=== PATIENT | male | born 1955 | race Caucasian/White ===

== ENCOUNTER 2017-07-05 06:58 | Inpatient (IN) | payer SELFPAY ==
[~2017-07-05] VITALS: Ht 170.2 cm; Wt 84.1 kg
[2017-07-05] VITALS (9 sets, daily range): BP systolic 126–177; BP diastolic 89–105; PULSE 68–80; RESP 17–22; TEMP 97.1–98.3; O2SAT 94–99
[~2017-07-05 06:58] MED LIST: ASPI81TA23 PO; CARV3.12 PO; METF1000 PO; PRAV40TA2 PO; WARF-22 PO
--- NOTE | 2017-07-05 07:40 | PD ---
HPI Chief Complaint: Cold / Flu Symptoms Time Seen by Provider: 07:35 Travel History International Travel<30 days: No Contact w/Intl Traveler<30days: No Traveled to known affect area: No History of Present Illness HPI 62-year-old male patient with history of femoral bypass, currently on Coumadin, previous MIs, hypertension, [id number] diabetes, presents to the ER today because over last 4 days he's been having shortness of breath, dyspnea on exertion, coughing, and leg swelling. He denies any fevers or any other issues. Modifying Factors: Worse with exertion Associated Signs & Symptoms: Coughing, shortness of breath, leg swelling Risk Factors: Cardiac history PFSH Past Medical History Hx Anticoagulant Therapy: Yes Heart Rhythm Problems: No Cardiovascular Problems: Yes High Cholesterol: Yes Chest Pain: No Congestive Heart Failure: No COPD: Yes Diabetes: Yes Patient Takes Glucophage: Yes Diminished Hearing: No Genitourinary: No Hypertension: Yes Musculoskeletal: No Neurologic: No Reproductive: No Respiratory: Yes (COPD) Past Surgical History Abdominal Surgery: No Cardiac Surgery: No Ear Surgery: No Endocrine Surgery: No Eye Surgery: No Genitourinary Surgery: No Oral Surgery: No Thoracic Surgery: No Other Surgery: Yes (r. leg dvt sx) Social History Alcohol Use: Yes (occ) Tobacco Use: No Substance Use: No Allergies-Medications (Allergen,Severity, Reaction): Coded Allergies: No Known Allergies (Verified Adverse Reaction, Unknown, 07/05/17) Reported Meds & Prescriptions Reported Meds & Active Scripts Active Pravastatin 40 Mg Tab 2 Tab PO DAILY Metformin (Metformin HCl) 1,000 Mg Tab 1,000 Mg PO BIDPC With meals Warfarin 10 Mg Tab 10 Mg PO DAILY Carvedilol 3.125 Mg Tab 3.125 Mg PO BID Reported Aspirin EC (Aspirin) 81 Mg Tabdr 81 Mg PO DAILY Review of Systems Except as stated in HPI: all other systems reviewed are Neg Physical Exam Narrative GENERAL: Well-developed elderly white male patient currently in mild distress. Awake and oriented 3. SKIN: Focused skin assessment warm/dry. HEAD: Atraumatic. Normocephalic. EYES: Pupils equal and round. No scleral icterus. No injection or drainage. ENT: No nasal bleeding or discharge. Mucous membranes pink and moist. NECK: Trachea midline. No JVD. CARDIOVASCULAR: Regular rate and rhythm. No murmur appreciated. RESPIRATORY: No accessory muscle use. Mild intermittent wheezing bilaterally. Breath sounds equal bilaterally. GASTROINTESTINAL: Abdomen soft, non-tender, nondistended. Hepatic and splenic margins not palpable. MUSCULOSKELETAL: No obvious deformities. No clubbing. No cyanosis. +1 pitting edema both legs. NEUROLOGICAL: Awake and alert. No obvious cranial nerve deficits. Motor grossly within normal limits. Normal speech. PSYCHIATRIC: Appropriate mood and affect; insight and judgment normal. Data Data Last Documented VS Vital Signs Date Time Temp Pulse Resp B/P (MAP) Pulse Ox O2 Delivery O2 Flow Rate FiO2 07/05/17 09:08 72 19 151/96 (114) 97 Room Air 07/05/17 07:03 97.7 Orders Orders Complete Blood Count With Diff (07/05/17 07:35) Comprehensive Metabolic Panel (07/05/17 07:35) B-Type Natriuretic Peptide (07/05/17 07:35) Act Partial Throm Time (Ptt) (07/05/17 07:35) Prothrombin Time / Inr (Pt) (07/05/17 07:35) Ckmb (Isoenzyme) Profile (07/05/17 07:35) Troponin I (07/05/17 07:35) Iv Access Insert/Monitor (07/05/17 07:35) Ecg Monitoring (07/05/17 07:35) Oximetry (07/05/17 07:35) Oxygen Administration (07/05/17 07:35) Chest, Single Ap (07/05/17 07:35) Sodium Chloride 0.9% Flush (Ns Flush) (07/05/17 07:45) Us Leg Venous Doppler Bilat (07/05/17 07:35) CKMB (07/05/17 07:30) CKMB% (07/05/17 07:30) Electrocardiogram (07/05/17 07:33) Furosemide Inj (Lasix Inj) (07/05/17 08:45) Labs Laboratory Tests Test 07/05/17 07:30 White Blood Count 9.7 TH/MM3 Red Blood Count 3.85 MIL/MM3 Hemoglobin 12.7 GM/DL Hematocrit 38.7 % Mean Corpuscular Volume 100.6 FL Mean Corpuscular Hemoglobin 33.0 PG Mean Corpuscular Hemoglobin Concent 32.9 % Red Cell Distribution Width 14.9 % Platelet Count 203 TH/MM3 Mean Platelet Volume 9.5 FL Neutrophils (%) (Auto) 76.9 % Lymphocytes (%) (Auto) 15.7 % Monocytes (%) (Auto) 5.5 % Eosinophils (%) (Auto) 1.1 % Basophils (%) (Auto) 0.8 % Neutrophils # (Auto) 7.5 TH/MM3 Lymphocytes # (Auto) 1.5 TH/MM3 Monocytes # (Auto) 0.5 TH/MM3 Eosinophils # (Auto) 0.1 TH/MM3 Basophils # (Auto) 0.1 TH/MM3 CBC Comment DIFF FINAL Differential Comment Prothrombin Time 112.8 SEC Prothromb Time International Ratio 9.3 RATIO Activated Partial Thromboplast Time 53.5 SEC Blood Urea Nitrogen 18 MG/DL Creatinine 1.15 MG/DL Random Glucose 133 MG/DL Total Protein 6.9 GM/DL Albumin 3.6 GM/DL Calcium Level 8.5 MG/DL Alkaline Phosphatase 74 U/L Aspartate Amino Transf (AST/SGOT) 43 U/L Alanine Aminotransferase (ALT/SGPT) 57 U/L Total Bilirubin 0.7 MG/DL Sodium Level 140 MEQ/L Potassium Level 4.1 MEQ/L Chloride Level 108 MEQ/L Carbon Dioxide Level 23.9 MEQ/L Anion Gap 8 MEQ/L Estimat Glomerular Filtration Rate 65 ML/MIN Total Creatine Kinase 158 U/L Creatine Kinase MB 4.5 NG/ML Troponin I 0.13 NG/ML B-Type Natriuretic Peptide 2813 PG/ML MDM Medical Decision Making Medical Screen Exam Complete: Yes Emergency Medical Condition: Yes Medical Record Reviewed: Yes Interpretation(s) EKG shows normal sinus rhythm with first-degree AV block at a rate of 73 bpm. Occasional PVCs. No signs of acute ST-T changes. Laboratory Tests Test 07/05/17 07:30 Red Blood Count 3.85 MIL/MM3 (4.50-5.90) Hemoglobin 12.7 GM/DL (13.0-17.0) Hematocrit 38.7 % (39.0-51.0) Mean Corpuscular Volume 100.6 FL (80.0-100.0) Neutrophils (%) (Auto) 76.9 % (16.0-70.0) Prothrombin Time 112.8 SEC (9.8-11.6) Prothromb Time International Ratio 9.3 RATIO Activated Partial Thromboplast Time 53.5 SEC (24.3-30.1) Random Glucose 133 MG/DL (74-106) Aspartate Amino Transf (AST/SGOT) 43 U/L (15-37) Chloride Level 108 MEQ/L (98-107) Estimat Glomerular Filtration Rate 65 ML/MIN (>89) Creatine Kinase MB 4.5 NG/ML (0.5-3.6) Troponin I 0.13 NG/ML (0.02-0.05) B-Type Natriuretic Peptide 2813 PG/ML (0-100) Last 24 hours Impressions Lower Extremity Ultrasound 07/05/17734 Signed Impressions: Service Date/Time: Wednesday, July 05, 2017 07:50 - CONCLUSION: Normal examination. Angel Nevarez MD Chest X-Ray 07/05/17734 Signed Impressions: Service Date/Time: Wednesday, July 05, 2017 08:19 - CONCLUSION: 1. Probable trace right pleural effusion with mild patchy right lower lobe airspace disease which may reflect atelectasis although developing pneumonia or aspiration cannot be excluded in the appropriate clinical setting. Abel Friedman MD Differential Diagnosis Coughing, dyspnea on exertion, leg swelling: Dependent edema versus CHF exacerbation versus COPD exacerbation versus pneumonia versus PE/DVT Narrative Course Chest x-ray and symptoms indicative of possible underlying CHF. BNP is fairly elevated as well. Chest x-ray shows right lower lobe effusion, right lower lobe infiltrates, and Lasix was given in the ER. Plan would be to admit the patient for further treatment. Ultrasound of the legs show no signs of DVT. At this point, case is discussed with Dr. Smith for admission. Diagnosis Primary Impression: CHF exacerbation Admitting Information Admitting Physician Requests: Admit Molly Aguirre MD Jul 05, 2017 07:40
[2017-07-05] MEDS ORDERED: SODIUM CHLORIDE 0.9% FLUSH 10 ML FLUSH IVF PRN (07:45)
[2017-07-05 07:53] LABS: AUTOMATED NEUTROPHIL # 7.5 TH/MM3 (1.8-7.7); BASOPHIL # 0.1 TH/MM3 (0-0.2); BASOPHIL % 0.8 % (0.0-2.0); EOSINOPHIL # 0.1 TH/MM3 (0-0.4); EOSINOPHIL % 1.1 % (0.0-4.0); HEMATOCRIT 38.7 % (39.0-51.0); HEMO FLAGS DIFF FINAL; LYMPH % 15.7 % (9.0-44.0); LYMPHOCYTE # 1.5 TH/MM3 (1.0-4.8); MEAN CELL VOLUME 100.6 FL (80.0-100.0); MEAN CORPUSCULAR HGB CONC 32.9 % (32.0-36.0); MONO % 5.5 % (0.0-8.0); NEUT % 76.9 % (16.0-70.0); PLATELET COUNT 203 TH/MM3 (150-450); RED BLOOD COUNT 3.85 MIL/MM3 (4.50-5.90); RED CELL DISTRIBUTION WIDTH 14.9 % (11.6-17.2); WHITE BLOOD COUNT 9.7 TH/MM3 (4.0-11.0)
[2017-07-05 08:06] LABS: APTT (PATIENT) 53.5 SEC (24.3-30.1); PROTHROMBIN TIME - PATIENT 112.8 SEC (9.8-11.6)
[2017-07-05 08:11] LABS: ALT (GPT) 57 U/L (12-78); ANION GAP 8 MEQ/L (5-15); AST (GOT) 43 U/L (15-37); BICARBONATE 23.9 MEQ/L (21.0-32.0); BLOOD UREA NITROGEN 18 MG/DL (7-18); CHLORIDE 108 MEQ/L (98-107); GLOMERULAR FILTRATION RATE 65 ML/MIN (>89); POTASSIUM 4.1 MEQ/L (3.5-5.1); SODIUM (NA) 140 MEQ/L (136-145)
[2017-07-05 08:14] LABS: ALKALINE PHOSPHATASE 74 U/L (45-117); CREATINE KINASE 158 U/L (39-308); INTERNATIONAL NORMALIZED RATIO 9.3 RATIO; TOTAL BILIRUBIN ADULT 0.7 MG/DL (0.2-1.0)
[2017-07-05 08:26] LABS: CKMB 4.5 NG/ML (0.5-3.6)
--- NOTE | 2017-07-05 08:34 | RADRPT ---
EXAM DATE/TIME: 07/05/2017 07:50 [facility] COMPARISON: No previous studies available for comparison. INDICATIONS : Bilateral leg swelling. MEDICAL HISTORY : Hypercholesterolemia. Hypertension. Chronic obstructive pulmonary disease. Anticoagulant therapy. Jia betes. SURGICAL HISTORY : Right fermoral artery bypass graft. ENCOUNTER: Initial ACUITY: 1 day PAIN SCORE: 0/10 LOCATION: Bilateral legs. TECHNIQUE: Venous ultrasound of the left and right leg was performed from the inguinal ligament to the proximal calf. Real-time, color Doppler and spectral tracing, compression and augmentation techniques were us ed. FINDINGS: RIGHT LEG: There is normal compressibility of the deep venous system from the inguinal region to the proximal ca lf. No echogenic clot is seen in the lumen of the common femoral, femoral, popliteal, and posterior tibial veins. There is a normal response of the venous system to proximal and distal augmentation an d respiration. LEFT LEG: There is normal compressibility of the deep venous system from the inguinal region to the proximal ca lf. No echogenic clot is seen in the lumen of the common femoral, femoral, popliteal, and posterior tibial veins. There is a normal response of the venous system to proximal and distal augmentation an d respiration. CONCLUSION: Normal examination. Angel Nevarez MD on July 05, 2017 at 8:32 Board Certified Radiologist. This report was verified electronically.
--- NOTE | 2017-07-05 08:41 | RADRPT ---
EXAM DATE/TIME: 07/05/2017 08:19 [facility] COMPARISON: CHEST SINGLE AP, February 18, 2016, 11:35. INDICATIONS : Short of breath, coughing and lower extremity edema MEDICAL HISTORY : Hypertension. Chronic obstructive pulmonary disease. Congestive heart failure. diabetes SURGICAL HISTORY : None. ENCOUNTER: Initial ACUITY: 2 days PAIN SCORE: 0/10 LOCATION: Bilateral chest FINDINGS: Slight blunting of the right costophrenic angle with subtle right lower lobe patchy airspace disease. Cardiomediastinal contours are stable. Bony thorax is intact. CONCLUSION: 1. Probable trace right pleural effusion with mild patchy right lower lobe airspace disease which may reflect atelectasis although developing pneumonia or aspiration cannot be excluded in the appropriat e clinical setting. Abel Friedman MD on July 05, 2017 at 8:38 Board Certified Radiologist. This report was verified electronically.
[2017-07-05] MEDS ORDERED: FUROSEMIDE 40 MG/4 ML VIAL IV PUSH ONE (08:45)
[2017-07-05] MEDS ORDERED: GLUCAGON 1 MG/ML VIAL OTHER PRN (09:30)
[2017-07-05] MEDS ORDERED: DEXTROSE 50% IN WATER 50 ML VIAL(D50) IV PUSH PRN (09:30)
--- NOTE | 2017-07-05 10:47 | HHI.HP ---
[facility] Primary Care Physician No Primary Care Physician Admission Diagnosis CHF exacerbation/elevated troponin Diagnoses: (1) CHF exacerbation Diagnosis: Principal Chief Complaint: sob Travel History International Travel<30 Days: No Contact w/Intl Traveler <30 Da: No Traveled to Known Affected Are: No History of Present Illness patient is a 62 y/o male with history of CHF, hypertension, dyslipidemia and PVD who presented to ER with shortness of breath. he says that he's had sob for the past few days. this was associated with some cough productive of clear sputum. he denies any fever or chills but reports orthopnea and PND; in fact he says that he couldn't sleep because of worsening sob. denies any chest pain- he says that he noticed that his legs are more swollen. he says that he's compliant with the medications and diet. Review of Systems Constitutional: DENIES: Fever, Weight loss, Chills, Night Sweats Eyes: DENIES: Blurred vision, Diplopia, Vision loss, Double Vision Ears, nose, mouth, throat: DENIES: Tinnitus, Vertigo, Throat pain, Epistaxis Respiratory: COMPLAINS OF: Cough, Sputum production, Shortness of breath, DENIES: Apneas, Snoring, Wheezing, Hemoptysis Cardiovascular: COMPLAINS OF: PND, Lower Extremity Edema, Orthopnea, DENIES: Palpitations, Syncope, Dyspnea on Exertion, Claudication Gastrointestinal: DENIES: Abdominal pain, Black stools, Bloody stools, Constipation, Diarrhea, Nausea, Vomiting, Difficulty Swallowing, Anorexia Genitourinary: DENIES: Urinary frequency, Urgency, Hematuria, Dysuria Musculoskeletal: DENIES: Joint pain, Muscle aches, Stiffness, Joint Swelling Integumentary: DENIES: Rash Neurologic: DENIES: Abnormal gait, Headache, Localized weakness, Paresthesias, Seizures, Speech Problems, Tremor, Poor Balance Psychiatric: DENIES: Anxiety, Confusion, Mood changes, Depression, Hallucinations, Agitation, Suicidal Ideation, Homicidal Ideation, Delusions Past Family Social History Past Medical History CHF hypertension dyslipidemia PVD Past Surgical History angioplasty right leg Reported Medications coreg aspirin pravachol metformin Allergies: Coded Allergies: No Known Allergies (Verified Allergy, Unknown, 07/05/17) Active Ordered Medications Current Medications Sodium Chloride (NS Flush) 2 ml UNSCH PRN IVF FLUSH AFTER USING IV ACCESS Last administered on 07/05/17 09:05; Start 07/05/17 at 07:45 Furosemide (Lasix Inj) 40 mg ONCE ONCE IV PUSH Last administered on 09:05; Start 07/05/17 at 08:45; Stop 07/05/17 at 08:46; Status DC Dextrose (D50w (Vial) Inj) 50 ml UNSCH PRN IV PUSH HYPOGLYCEMIA-SEE COMMENTS; Start 07/05/17 at 09:30 Glucagon (Glucagon Inj) 1 mg UNSCH PRN OTHER HYPOGLYCEMIA-SEE COMMENTS; Start 07/05/17 at 09:30 Insulin Aspart (NovoLOG SUPPLEMENTAL SCALE) 1 ACHS SLIDING SCALE SQ ; Start at 12:00 Social History quit smoking two years ago- drinks occasionally. Physical Exam Vital Signs Vital Signs Date Time Temp Pulse Resp B/P (MAP) Pulse Ox O2 Delivery O2 Flow Rate FiO2 07/05/17 09:08 72 19 151/96 (114) 97 Room Air 07/05/17 07:18 77 22 157/93 (114) 98 Room Air 07/05/17 07:03 97.7 80 17 177/105 (129) 99 Room Air Physical Exam GENERAL: This is a well-nourished, well-developed patient, in no apparent distress. SKIN: No rashes, ecchymoses or lesions. Cool and dry. HEAD: Atraumatic. Normocephalic. No temporal or scalp tenderness. EYES: Pupils equal round and reactive. Extraocular motions intact. No scleral icterus. No injection or drainage. ENT: Nose without bleeding, purulent drainage or septal hematoma. Throat without erythema, tonsillar hypertrophy or exudate. Uvula midline. Airway patent. NECK: Trachea midline. No JVD or lymphadenopathy. Supple, nontender, no meningeal signs. CARDIOVASCULAR: Regular rate and rhythm without murmurs, gallops, or rubs. RESPIRATORY: Clear to auscultation. Breath sounds equal bilaterally. No wheezes , rales, or rhonchi. GASTROINTESTINAL: Abdomen soft, non-tender, nondistended. No hepato-splenomegaly , or palpable masses. No guarding. MUSCULOSKELETAL: Extremities with bilateral pedal edema. NEUROLOGICAL: Awake and alert. Cranial nerves II through XII intact. Motor and sensory grossly within normal limits. Five out of 5 muscle strength in all muscle groups. Normal speech. Laboratory Laboratory Tests Test 07/05/17 07:30 White Blood Count 9.7 Red Blood Count 3.85 Hemoglobin 12.7 Hematocrit 38.7 Mean Corpuscular Volume 100.6 Mean Corpuscular Hemoglobin 33.0 Mean Corpuscular Hemoglobin Concent 32.9 Red Cell Distribution Width 14.9 Platelet Count 203 Mean Platelet Volume 9.5 Neutrophils (%) (Auto) 76.9 Lymphocytes (%) (Auto) 15.7 Monocytes (%) (Auto) 5.5 Eosinophils (%) (Auto) 1.1 Basophils (%) (Auto) 0.8 Neutrophils # (Auto) 7.5 Lymphocytes # (Auto) 1.5 Monocytes # (Auto) 0.5 Eosinophils # (Auto) 0.1 Basophils # (Auto) 0.1 CBC Comment DIFF FINAL Differential Comment Prothrombin Time 112.8 Prothromb Time International Ratio 9.3 Activated Partial Thromboplast Time 53.5 Blood Urea Nitrogen 18 Creatinine 1.15 Random Glucose 133 Total Protein 6.9 Albumin 3.6 Calcium Level 8.5 Alkaline Phosphatase 74 Aspartate Amino Transf (AST/SGOT) 43 Alanine Aminotransferase (ALT/SGPT) 57 Total Bilirubin 0.7 Sodium Level 140 Potassium Level 4.1 Chloride Level 108 Carbon Dioxide Level 23.9 Anion Gap 8 Estimat Glomerular Filtration Rate 65 Total Creatine Kinase 158 Creatine Kinase MB 4.5 Troponin I 0.13 B-Type Natriuretic Peptide 2813 Result Diagram: 07/05/1772907/05/17729 Imaging Last Impressions Lower Extremity Ultrasound 07/05/17734 Signed Impressions: Service Date/Time: Wednesday, July 05, 2017 07:50 - CONCLUSION: Normal examination. Angel Nevarez MD Chest X-Ray 07/05/17734 Signed Impressions: Service Date/Time: Wednesday, July 05, 2017 08:19 - CONCLUSION: 1. Probable trace right pleural effusion with mild patchy right lower lobe airspace disease which may reflect atelectasis although developing pneumonia or aspiration cannot be excluded in the appropriate clinical setting. Abel Bozorgmanesh, MD Caprini VTE Risk Assessment Caprini VTE Risk Assessment: Mod/High Risk (score >= 2) Caprini Risk Assessment Model Point Value = 1 Point Value = 2 Point Value = 3 Point Value = 5 Age 41-60 Minor surgery BMI > 25 kg/m2 Swollen legs Varicose veins or History of unexplained or recurrent spontaneous Oral contraceptives or hormone replacement Sepsis (< 1 month) Serious lung disease, including pneumonia (< 1 month) Abnormal pulmonary function Acute myocardial infarction Congestive heart failure (< 1 month) History of inflammatory bowel disease Medical patient at bed rest Age 61-74 Arthroscopic surgery Major open surgery (> 45 min) Laparoscopic surgery (> 45 min) Malignancy Confined to bed (> 72 hours) Immobilizing plaster cast Central venous access Age >= 75 History of VTE Family history of VTE Factor V Leiden Prothrombin [id number] Lupus anticoagulant Anticardiolipin antibodies Elevated serum homocysteine Heparin-induced thrombocytopenia Other congenital or acquired thrombophilia Stroke (< 1 month) Elective arthroplasty Hip, pelvis, or leg fracture Acute spinal cord injury (< 1 month) Prophylaxis Regimen Total Risk Factor Score Risk Level Prophylaxis Regimen 0-1 Low Early ambulation 2 Moderate Order ONE of the following: *Sequential Compression Device (SCD) *Heparin 5000 units SQ BID 3-4 Higher Order ONE of the following medications: *Heparin 5000 units SQ TID *Enoxaparin/Lovenox 40 mg SQ daily (WT < 150 kg, CrCl > 30 mL/min) *Enoxaparin/Lovenox 30 mg SQ daily (WT < 150 kg, CrCl > 10-29 mL/min) *Enoxaparin/Lovenox 30 mg SQ BID (WT < 150 kg, CrCl > 30 mL/min) AND/OR *Sequential Compression Device (SCD) 5 or more Highest Order ONE of the following medications: *Heparin 5000 units SQ TID (Preferred with Epidurals) *Enoxaparin/Lovenox 40 mg SQ daily (WT < 150 kg, CrCl > 30 mL/min) *Enoxaparin/Lovenox 30 mg SQ daily (WT < 150 kg, CrCl > 10-29 mL/min) *Enoxaparin/Lovenox 30 mg SQ BID (WT < 150 kg, CrCl > 30 mL/min) AND *Sequential Compression Device (SCD) Assessment and Plan Assessment and Plan A/P - acute on chronic systolic CHF EF 25-30% on echo ( 2014). start on IV diuretics- resume Coreg- will monitor I/O and daily weight- repeat echo. -mildly elevated troponin- likely due to CHF- denies chest pain- no acute EKG changes continue BB and statin- trend the cardiac enzymes. of note had a cardiac cath about two years ago with no significant CAD. will consider cardiology consult if develops chest pain or with rising troponin. -coumadin toxicity- no active bleeding. hold coumadin- one dose of po Vitamin K today- PT/ INR tomorrow. -diabetes mellitus hold metformin due to CHF- accu-check with SSI. -PVD- s/p vascular intervention in 2014 -resume coumadin when INR back to therapeutic level- resume statin. -DVT prophylaxis; on Coumadin ( on hold due to supratherapeutic INR). Discussed Condition With the patient and ER physician. Physician Certification 2 Midnight Certification Type: Admission for Inpatient Services Order for Inpatient Services The services are ordered in accordance with Medicare regulations or non- Medicare payer requirements, as applicable. In the case of services not specified as inpatient-only, they are appropriately provided as inpatient services in accordance with the 2-midnight benchmark. Estimated LOS (days): 2 days is the estimated time the patient will need to remain in the hospital, assuming treatment plan goals are met and no additional complications. Post-Hospital Plan: Home Problem Qualifiers (1) CHF exacerbation: Qualified Codes: I50.23 - Acute on chronic systolic (congestive) heart failure Amber Quick MD Jul 05, 2017 10:47
[2017-07-05] MEDS ORDERED: ENALAPRILAT 1.25 MG/ML VIAL IV PUSH PRN (11:00)
[2017-07-05] MEDS ORDERED: PHYTONADIONE 5 MG TAB PO ONE (11:00)
[2017-07-05] MEDS ORDERED: PHYTONADIONE 5 MG/SWFI 5 ML ORAL SYR PO ONE (11:45)
[2017-07-05] MEDS: POTASSIUM CHLORIDE 20 MEQ CONTROLLED RELEASE TAB PO SCH (11:58)
[2017-07-05] MEDS: INSULIN ASPART SUPPLEMENTAL SCALE SQ SCH ×3 (12:00→20:59)
[2017-07-05] MEDS ORDERED: FUROSEMIDE 20 MG/2 ML VIAL IV PUSH ONE (14:00)
--- NOTE | 2017-07-05 17:10 | EKG ---
Date Performed: 07/05/2017 Time Performed: 07:33:48 PTAGE: 62 years EKG: Sinus rhythm WITH FIRST DEGREE AV BLOCK WITH OCCASIONAL VENTRICULAR PREMATURE COMPLEXES POSSIBLE LEFT ATRIAL ENLA RGEMENT INTRAVENTRICULAR CONDUCTION DELAY When compared to previous tracing, the patient is no longer Bradycardic. ABNORMAL ECG PREVIOUS TRACING : 02/18/2016 11.14.01 DOCTOR: Raquel Paulino Interpretating Date/Time 07/05/2017 17:09:18
[2017-07-05] MEDS: CARVEDILOL 3.125 MG TAB PO SCH (20:56)
[2017-07-06] VITALS (10 sets, daily range): BP systolic 123–139; BP diastolic 77–93; PULSE 56–77; RESP 18; TEMP 97.2–98.4; O2SAT 95–99
[2017-07-06] MEDS ORDERED: ACETAMINOPHEN 325 MG TAB PO PRN (05:00)
[2017-07-06] MEDS: INSULIN ASPART SUPPLEMENTAL SCALE SQ SCH ×4 (07:43→20:49)
[2017-07-06] MEDS: POTASSIUM CHLORIDE 20 MEQ CONTROLLED RELEASE TAB PO SCH (08:07)
[2017-07-06] MEDS: PRAVASTATIN SOD 40 MG TAB PO SCH (08:07)
[2017-07-06] MEDS: CARVEDILOL 3.125 MG TAB PO SCH ×2 (08:07→20:50)
[2017-07-06] MEDS: FUROSEMIDE 40 MG/4 ML VIAL IV PUSH SCH (08:07)
[2017-07-06 09:43] LABS: INTERNATIONAL NORMALIZED RATIO 1.7 RATIO; PROTHROMBIN TIME - PATIENT 19.1 SEC (9.8-11.6)
[2017-07-06] MEDS ORDERED: INFLUENZA VIRUS VACCINE (QUADRIVALENT) 0.5 ML SYR IM ONE (10:00)
[2017-07-06 10:04] LABS: BICARBONATE 27.9 MEQ/L (21.0-32.0); POTASSIUM 3.6 MEQ/L (3.5-5.1)
--- NOTE | 2017-07-06 13:59 | ECHRPT ---
Indication: Heart failure, unspecified CONCLUSIONS The left ventricular systolic function is moderately reduced with an estimated ejection fraction in the range of 40-45%. Wall thickness is measured at the upper limits of normal. Normal left ventricular size. moderate mitral valve regurgitation. possible ruptured or redundant chordae tendinae There is mild to moderate tricuspid regurgitation. The estimated pulmonary arterial pressure is 65.7 mmHg. BP: 151 / 96 HR: 72 Rhythm: Other MEASUREMENTS (Male / Female) Normal Values Technical Quality:Fair 2D ECHO LV Diastolic Diameter PLAX 5.8 cm 4.2 - 5.9 / 3.9 - 5.3 cm LV Systolic Diameter PLAX 4.9 cm IVS Diastolic Thickness 1.1 cm 0.6 - 1.0 / 0.6 - 0.9 cm LVPW Diastolic Thickness 1.2 cm 0.6 - 1.0 / 0.6 - 0.9 cm LV Relative Wall Thickness 0.4 LVOT Diameter 2.0 cm M-MODE Aortic Root Diameter MM 2.7 cm LA Systolic Diameter MM 5.4 cm LA Ao Ratio MM 2.0 AV Cusp Separation MM 2.2 cm DOPPLER AV Peak Velocity 145.0 cm/s AV Peak Gradient 8.4 mmHg LVOT Peak Velocity 68.6 cm/s LVOT Peak Gradient 1.9 mmHg AV Area Cont Eq pk 1.5 cm MR Peak Velocity 443.0 cm/s MR Peak Gradient 78.5 mmHg TR Peak Velocity 373.0 cm/s TR Peak Gradient 55.7 mmHg Right Atrial Pressure 10.0 mmHg Pulmonary Artery Systolic Pressu 65.7 mmHg Right Ventricular Systolic Press 65.7 mmHg PV Peak Velocity 128.0 cm/s PV Peak Gradient 6.6 mmHg FINDINGS LEFT VENTRICLE The left ventricular systolic function is moderately reduced with an estimated ejection fraction in the range of 40-45%. Wall thickness is measured at the upper limits of normal. Normal left ventricular size. RIGHT VENTRICLE Normal right ventricular size and systolic function. LEFT ATRIUM The left atrial size is normal. RIGHT ATRIUM The right atrial size is normal. ATRIAL SEPTUM Normal atrial septal thickness without atrial level shunting by limited color doppler interrogation. AORTA The aortic root and proximal ascending aorta are normal in size on limited imaging. MITRAL VALVE [id number] mitral valve regurgitation. AORTIC VALVE Trileaflet aortic valve. No aortic valve stenosis or regurgitation. TRICUSPID VALVE There is severe tricuspid regurgitation. The estimated pulmonary arterial pressure is 65.7 mmHg. PULMONARY VALVE No pulmonary valve regurgitation or stenosis. VESSELS The inferior vena cava is normal in size. PERICARDIUM No pericardial effusion. Bennett Waters MD, FACC, [facility] (Electronically Signed) Final Date:06 July 2017 13:58
--- NOTE | 2017-07-06 17:27 | HHI.PR ---
Subjective Remarks deferred entry - patient seen earlier at 12:30 am sob improving. denies cp. Objective Vitals Vital Signs Date Time Temp Pulse Resp B/P (MAP) Pulse Ox O2 Delivery O2 Flow Rate FiO2 07/06/17 13:08 Room Air 07/06/17 12:30 56 07/06/17 12:03 97.2 59 18 123/80 (94) 96 07/06/17 08:03 97.2 67 18 132/85 (101) 97 07/06/17 04:45 97.3 66 18 139/91 (107) 95 07/06/17 04:03 70 07/06/17 00:04 71 07/05/17 23:52 97.1 68 18 126/90 (102) 94 07/05/17 20:00 Room Air 07/05/17 19:55 98.3 73 18 146/93 (110) 98 07/05/17 19:41 76 I/O 07/05/17 07/05/17 07/05/17 07/06/17 07/06/17 07/06/17 07:00 15:00 23:00 07:00 15:00 23:00 Intake Total 960 ml Output Total 375 ml Balance 585 ml Intake Oral 960 ml Output Urine Total 375 ml # Voids 2 # Bowel Movements 0 Result Diagram: 07/05/1772907/06/17900 Imaging Last Impressions Lower Extremity Ultrasound 07/05/17734 Signed Impressions: Service Date/Time: Wednesday, July 05, 2017 07:50 - CONCLUSION: Normal examination. Angel Nevarez MD Chest X-Ray 07/05/17734 Signed Impressions: Service Date/Time: Wednesday, July 05, 2017 08:19 - CONCLUSION: 1. Probable trace right pleural effusion with mild patchy right lower lobe airspace disease which may reflect atelectasis although developing pneumonia or aspiration cannot be excluded in the appropriate clinical setting. Abel Friedman MD Objective Remarks AAOx3 NAD S1S2 RRR, no MRG abdomen soft, nt, nd + bilateral edema still present in lower extremities Medications and IVs Current Medications Medications (Trade) Dose Ordered Sig/Eliot Route Start Time Stop Time Status Last Admin (NS Flush) 2 ml UNSCH PRN IVF 07/05/17 07:45 07/05/17 09:05 (D50w (Vial) Inj) 50 ml UNSCH PRN IV PUSH 07/05/17 09:30 (Glucagon Inj) 1 mg UNSCH PRN OTHER 07/05/17 09:30 (NovoLOG SUPPLEMENTAL SCALE) 1 ACHS SLIDING SCALE SQ 07/05/17 12:00 07/05/17 17:08 (Lasix Inj) 40 mg DAILY IV PUSH 07/06/17 09:00 07/06/17 08:07 (KCl) 20 meq DAILY PO 07/05/17 12:00 07/06/17 08:07 (Vasotec Inj) 1.25 mg Q8H PRN IV PUSH 07/05/17 11:00 (Coreg) 3.125 mg BID PO 07/05/17 21:00 07/06/17 08:07 (Pravachol) 80 mg DAILY PO 07/06/17 09:00 07/06/17 08:07 (Tylenol) 650 mg Q4H PRN PO 07/06/17 05:00 07/06/17 05:43 A/P Problem List: (1) Acute on chronic systolic (congestive) heart failure ICD Code: I50.23 - Acute on chronic systolic (congestive) heart failure Plan: EF 25-30% on echocardiogram performed in 2014. The patient was started on IV diuretics, Coreg resumed. Repeat echo still pending. Respiratory status improving. (2) Troponin level elevated ICD Code: R77.8 - Other specified abnormalities of plasma proteins Status: Acute Plan: Likely secondary to congestive heart failure. The patient denies chest pain and EKG reviewed by me does not show acute EKG changes suggestive of active ischemia. Continue beta jesus and statin and trend cardiac enzymes. Cardiac enzymes have been stable at 0.13. (3) Supratherapeutic INR ICD Code: R79.1 - Abnormal coagulation profile Plan: INR elevated at 9.3 on admission. No active bleeding observed. Upon review of records the patient has had a cardiac catheter about 2 years ago with no significant CAD. Will continue to monitor troponin level and if there is elevation or no improvement of these then will consult cardiology. INR came down to 1.7. We'll resume Coumadin. (4) Diabetes mellitus ICD Code: E11.9 - Diabetes mellitus Status: Chronic Plan: Metformin held due to acute congestive heart failure. The patient has been placed on SSI with insulin NovoLog and Accu-Cheks. Blood sugar seems to be stable. Continue SSI. (5) PAD (peripheral artery disease) ICD Code: I73.9 - Peripheral vascular disease, unspecified Status: Acute Plan: s/p vascular intervention in 2014 -resume coumadin when INR back to therapeutic level-continue statin. Assessment and Plan Will order PT eval. Discharge Planning Discharge pending PT eval. Possible discharge in a.m. pending clinical improvement. Problem Qualifiers (1) Diabetes mellitus: Qualified Codes: E11.8 - Type 2 diabetes mellitus with unspecified complications Michael Timmons MD Jul 06, 2017 17:27
[2017-07-07] VITALS (9 sets, daily range): BP systolic 121–133; BP diastolic 72–88; PULSE 64–79; RESP 18; TEMP 97–97.6; O2SAT 96–98
[2017-07-07] MEDS: INSULIN ASPART SUPPLEMENTAL SCALE SQ SCH ×4 (08:00→20:34)
[2017-07-07] MEDS: PRAVASTATIN SOD 40 MG TAB PO SCH (08:50)
[2017-07-07] MEDS: CARVEDILOL 3.125 MG TAB PO SCH ×2 (08:50→20:35)
[2017-07-07] MEDS: FUROSEMIDE 40 MG/4 ML VIAL IV PUSH SCH (08:50)
[2017-07-07] MEDS: POTASSIUM CHLORIDE 20 MEQ CONTROLLED RELEASE TAB PO SCH (08:50)
[2017-07-07 12:40] LABS: HEMATOCRIT 37.1 % (39.0-51.0); MEAN CELL VOLUME 99.5 FL (80.0-100.0); MEAN CORPUSCULAR HEMOGLOBIN 33.2 PG (27.0-34.0); MEAN CORPUSCULAR HGB CONC 33.3 % (32.0-36.0); PLATELET COUNT 203 TH/MM3 (150-450); RED BLOOD COUNT 3.73 MIL/MM3 (4.50-5.90); RED CELL DISTRIBUTION WIDTH 14.7 % (11.6-17.2); REVIEW FLAG FINAL; WHITE BLOOD COUNT 7.4 TH/MM3 (4.0-11.0)
[2017-07-07 12:57] LABS: BICARBONATE 26.9 MEQ/L (21.0-32.0); POTASSIUM 3.8 MEQ/L (3.5-5.1)
--- NOTE | 2017-07-07 14:34 | HHI.PR ---
Subjective Remarks SOB improving patient still c/o of BL lower extremity edema which is better and improving. Denies cp/sob Objective Vitals Vital Signs Date Time Temp Pulse Resp B/P (MAP) Pulse Ox O2 Delivery O2 Flow Rate FiO2 07/07/17 12:00 97.6 64 18 121/72 (88) 97 07/07/17 08:00 97.0 66 18 127/85 (99) 96 07/07/17 07:00 79 07/07/17 04:05 97.3 65 18 133/88 (103) 98 07/07/17 04:00 67 07/07/17 00:00 68 07/06/17 23:07 98.4 77 18 131/77 (95) 96 07/06/17 20:00 Room Air 07/06/17 20:00 67 07/06/17 19:27 97.9 66 18 134/93 (107) 97 07/06/17 16:03 97.9 65 18 135/90 (105) 99 I/O 07/06/17 07/06/17 07/06/17 07/07/17 07/07/17 07/07/17 07:00 15:00 23:00 07:00 15:00 23:00 Intake Total 960 ml 380 ml 480 ml Output Total 375 ml 250 ml Balance 585 ml 380 ml 230 ml Intake Oral 960 ml 380 ml 480 ml Output Urine Total 375 ml 250 ml # Voids 5 # Bowel Movements 0 1 0 Result Diagram: 07/07/17 1210 07/07/17 1210 Imaging Last Impressions Lower Extremity Ultrasound 07/05/17734 Signed Impressions: Service Date/Time: Wednesday, July 05, 2017 07:50 - CONCLUSION: Normal examination. Angel Nevarez MD Chest X-Ray 07/05/17734 Signed Impressions: Service Date/Time: Wednesday, July 05, 2017 08:19 - CONCLUSION: 1. Probable trace right pleural effusion with mild patchy right lower lobe airspace disease which may reflect atelectasis although developing pneumonia or aspiration cannot be excluded in the appropriate clinical setting. Abel Friedman MD Objective Remarks AAOx3 NAD S1S2 RRR, no MRG abdomen soft, nt, nd + bilateral edema still present in lower extremities Medications and IVs Current Medications Medications (Trade) Dose Ordered Sig/Eliot Route Start Time Stop Time Status Last Admin (NS Flush) 2 ml UNSCH PRN IVF 07/05/17 07:45 07/05/17 09:05 (D50w (Vial) Inj) 50 ml UNSCH PRN IV PUSH 07/05/17 09:30 (Glucagon Inj) 1 mg UNSCH PRN OTHER 07/05/17 09:30 (NovoLOG SUPPLEMENTAL SCALE) 1 ACHS SLIDING SCALE SQ 07/05/17 12:00 07/07/17 12:08 (Lasix Inj) 40 mg DAILY IV PUSH 07/06/17 09:00 07/07/17 08:50 (KCl) 20 meq DAILY PO 07/05/17 12:00 07/07/17 08:50 (Vasotec Inj) 1.25 mg Q8H PRN IV PUSH 07/05/17 11:00 (Coreg) 3.125 mg BID PO 07/05/17 21:00 07/07/17 08:50 (Pravachol) 80 mg DAILY PO 07/06/17 09:00 07/07/17 08:50 (Tylenol) 650 mg Q4H PRN PO 07/06/17 05:00 07/06/17 05:43 A/P Problem List: (1) Acute on chronic systolic (congestive) heart failure ICD Code: I50.23 - Acute on chronic systolic (congestive) heart failure Plan: EF 25-30% on echocardiogram performed in 2014. The patient was started on IV diuretics, Coreg resumed. Repeat echo still pending. Respiratory status improving. 07/07 Repeat echocardiogram shows a moderately reduced ejection fraction the range of 40-45%. Wall thickness is measured at the upper limits of normal. Moderate mitral valve regurgitation with possible ruptured or redundant chordae tendinea. Consult cardiology for further recommendations. continue IV diuretics. (2) Troponin level elevated ICD Code: R77.8 - Other specified abnormalities of plasma proteins Status: Acute Plan: Likely secondary to congestive heart failure. The patient denies chest pain and EKG reviewed by me does not show acute EKG changes suggestive of active ischemia. Continue beta jesus and statin and trend cardiac enzymes. Cardiac enzymes have been stable at 0.13. 07/07 repeat troponin level is 0.09. Cardiac enzymes trending down. (3) Supratherapeutic INR ICD Code: R79.1 - Abnormal coagulation profile Plan: INR elevated at 9.3 on admission. No active bleeding observed. Upon review of records the patient has had a cardiac catheter about 2 years ago with no significant CAD. Will continue to monitor troponin level and if there is elevation or no improvement of these then will consult cardiology. INR came down to 1.7. We'll resume Coumadin. (4) Diabetes mellitus ICD Code: E11.9 - Diabetes mellitus Status: Chronic (5) PAD (peripheral artery disease) ICD Code: I73.9 - Peripheral vascular disease, unspecified Status: Acute Assessment and Plan Will order PT eval. Discharge Planning Discharge pending PT eval. Possible discharge in a.m. pending clinical improvement. Problem Qualifiers (1) Diabetes mellitus: Qualified Codes: E11.8 - Type 2 diabetes mellitus with unspecified complications Michael Timmons MD Jul 07, 2017 14:34
[2017-07-07] MEDS ORDERED: WARFARIN SOD 3 MG TAB PO SCH (16:00)
[2017-07-07 17:03] LABS: INTERNATIONAL NORMALIZED RATIO 1.2 RATIO; PROTHROMBIN TIME - PATIENT 12.5 SEC (9.8-11.6)
--- NOTE | 2017-07-07 17:08 | PD.CONS ---
HPI Consult Requested By Primary Care Physician No Primary Care Physician History of Present Illness 62 y/o male with history of Nonischemic Cardiomyopathy, normal LHC on 2015, hypertension, dyslipidemia, smoker and PVD who presented to ER with shortness of breath in the setting of dietary indiscretions. He reports SOB for the past few days which was associated with productive cough of clear sputum. He denies any fever or chills but reports orthopnea and PND. Denies any chest pain. He states being complaints with medications however during the holidays he was noncompliant diet. Cardiology consulted for acute on chronic systolic HF. Review of Systems Consitutional: DENIES: Fatigue, Fever, Chills, Weight gain, Weight loss Eyes: DENIES: Amaurosis Fugax, Change in vision HEENT: DENIES: Lightheadedness, Change in hearing Respiratory: COMPLAINS OF: See HPI, Shortness of breath, Sputum production Cardiovascular: DENIES: See HPI, Chest pain, Palpitations, Syncope, Tachycardia Gastrointestinal: DENIES: Nausea, Vomiting, Change in bowel habits, Reflux, Bloody stools, Melena Genitourinary: DENIES: Urinary incontinence, Difficulty voiding Integumentary: DENIES: Rash Neurologic: DENIES: Tingling or numbness, Memory problems, Poor Balance, Stroke symptoms Musculoskeletal: DENIES: Joint pain, Muscle pain, Limited range of motion, Back pain Psychiatric: DENIES: Anxiety, Depression, Sleep disturbances Hematologic: DENIES: Bruising tendencies, Bleeding tendencies Endocrine: DENIES: Weight gain, Weight loss, Thyroid disease Past Family Social History Allergies: Coded Allergies: No Known Allergies (Verified Allergy, Unknown, 07/05/17) Past Medical History CHF hypertension dyslipidemia PVD Past Surgical History angioplasty right leg Reported Medications Reported Meds & Active Scripts Active Pravastatin 40 Mg Tab 2 Tab PO DAILY Metformin (Metformin HCl) 1,000 Mg Tab 1,000 Mg PO BIDPC With meals Warfarin 10 Mg Tab 10 Mg PO DAILY Carvedilol 3.125 Mg Tab 3.125 Mg PO BID Reported Aspirin EC (Aspirin) 81 Mg Tabdr 81 Mg PO DAILY Active Ordered Medications Current Medications Medications (Trade) Dose Ordered Sig/Eliot Route Start Time Stop Time Status Last Admin (NS Flush) 2 ml UNSCH PRN IVF 07/05/17 07:45 07/05/17 09:05 (D50w (Vial) Inj) 50 ml UNSCH PRN IV PUSH 07/05/17 09:30 (Glucagon Inj) 1 mg UNSCH PRN OTHER 07/05/17 09:30 (NovoLOG SUPPLEMENTAL SCALE) 1 ACHS SLIDING SCALE SQ 07/05/17 12:00 07/07/17 12:08 (Lasix Inj) 40 mg DAILY IV PUSH 07/06/17 09:00 07/07/17 08:50 (KCl) 20 meq DAILY PO 07/05/17 12:00 07/07/17 08:50 (Vasotec Inj) 1.25 mg Q8H PRN IV PUSH 07/05/17 11:00 (Coreg) 3.125 mg BID PO 07/05/17 21:00 07/07/17 08:50 (Pravachol) 80 mg DAILY PO 07/06/17 09:00 07/07/17 08:50 (Tylenol) 650 mg Q4H PRN PO 07/06/17 05:00 07/06/17 05:43 (Coumadin) 3 mg DAILY@16 PO 07/07/17 16:00 Pharmacy Profile Note 0 ml @ 0 mls/hr UNSCH OTHER 07/07/17 14:30 Family History None Social History quit smoking two years ago- drinks occasionally. Physical Exam Vital Signs Vital Signs Date Time Temp Pulse Resp B/P (MAP) Pulse Ox O2 Delivery O2 Flow Rate FiO2 07/07/17 15:59 97.5 64 18 127/81 (96) 96 07/07/17 15:00 69 07/07/17 12:00 97.6 64 18 121/72 (88) 97 07/07/17 08:00 97.0 66 18 127/85 (99) 96 07/07/17 07:00 79 07/07/17 04:05 97.3 65 18 133/88 (103) 98 07/07/17 04:00 67 07/07/17 00:00 68 07/06/17 23:07 98.4 77 18 131/77 (95) 96 07/06/17 20:00 Room Air 07/06/17 20:00 67 07/06/17 19:27 97.9 66 18 134/93 (107) 97 Physical Exam GENERAL: Well-nourished, well-developed patient. SKIN: Warm and dry. HEAD: Normocephalic. EYES: No scleral icterus. No injection or drainage. NECK: Supple, trachea midline. No JVD or lymphadenopathy. CARDIOVASCULAR: Regular rate and rhythm without murmurs, gallops, or rubs. RESPIRATORY: Breath sounds equal bilaterally. No accessory muscle use. GASTROINTESTINAL: Abdomen soft, non-tender, nondistended. EXTREMITIES: No cyanosis, or +++ edema. NEUROLOGICAL: Awake, alert, and oriented x 3. Non-focal. Laboratory Laboratory Tests Test 07/07/17 12:10 07/07/17 16:10 White Blood Count 7.4 Red Blood Count 3.73 Hemoglobin 12.4 Hematocrit 37.1 Mean Corpuscular Volume 99.5 Mean Corpuscular Hemoglobin 33.2 Mean Corpuscular Hemoglobin Concent 33.3 Red Cell Distribution Width 14.7 Platelet Count 203 Mean Platelet Volume 9.2 Blood Urea Nitrogen 18 Creatinine 1.02 Random Glucose 146 Calcium Level 8.5 Sodium Level 136 Potassium Level 3.8 Chloride Level 100 Carbon Dioxide Level 26.9 Anion Gap 9 Estimat Glomerular Filtration Rate 74 Troponin I 0.09 Result Diagram: 07/07/17 1210 07/07/17 1210 Imaging Last Impressions Lower Extremity Ultrasound 07/05/17734 Signed Impressions: Service Date/Time: Wednesday, July 05, 2017 07:50 - CONCLUSION: Normal examination. Angel Nevarez MD Chest X-Ray 07/05/17734 Signed Impressions: Service Date/Time: Wednesday, July 05, 2017 08:19 - CONCLUSION: 1. Probable trace right pleural effusion with mild patchy right lower lobe airspace disease which may reflect atelectasis although developing pneumonia or aspiration cannot be excluded in the appropriate clinical setting. Abel Friedman MD Assessment and Plan Problem List: (1) CHF exacerbation ICD Codes: I50.9 - Heart failure, unspecified Status: Acute Plan: 62 y/o M with known NICMP EF 40% on recent echo improved from 2015 admitted with acute on chronic HF in the setting of dietary indiscretions. Not on Lasix at home, not followed by Cardiology. Currently afebrile, hemodynamically stable, reports feeling improved from SOB after Lasix. Troponin elevation in the setting of HF. Recommendations: 1. Cont IV Lasix 2. Low salt diet 3. Strict I&O 4. Encourage ambulation 5. Smoking cessation 6. Cont Coreg, ASA and statin 7. Add ACEi as tolerated by BP 8. F/U with Cardiology upon discharge 9. Will need to be started on PO Lasix upon discharge Thank you for the opportunity to participate in the care oft his patient Will be available on a PRN basis for an questions or concerns (2) Pulmonary disease ICD Codes: J98.4 - Disease of lung Status: Acute (3) Systolic CHF ICD Codes: I50.20 - Unspecified systolic (congestive) heart failure Status: Chronic (4) COPD (chronic obstructive pulmonary disease) ICD Codes: J44.9 - Chronic obstructive pulmonary disease, unspecified Status: Chronic (5) Diabetes mellitus ICD Codes: E11.9 - Diabetes mellitus Status: Chronic (6) PAD (peripheral artery disease) ICD Codes: I73.9 - Peripheral vascular disease, unspecified Status: Acute (7) Acute on chronic systolic (congestive) heart failure ICD Codes: I50.23 - Acute on chronic systolic (congestive) heart failure (8) Supratherapeutic INR ICD Codes: R79.1 - Abnormal coagulation profile (9) Hypertension ICD Codes: I10 - Hypertension Status: Acute (10) Edema ICD Codes: R60.9 - Edema Status: Acute Problem Qualifiers (1) CHF exacerbation: Qualified Codes: I50.23 - Acute on chronic systolic (congestive) heart failure (2) Diabetes mellitus: Qualified Codes: E11.8 - Type 2 diabetes mellitus with unspecified complications Rich Will MD Jul 07, 2017 17:08
[2017-07-08] VITALS (8 sets, daily range): BP systolic 134–152; BP diastolic 81–96; PULSE 63–75; RESP 18–21; TEMP 97–97.8; O2SAT 95–97
[2017-07-08] MEDS: INSULIN ASPART SUPPLEMENTAL SCALE SQ SCH ×2 (08:00→11:50)
[2017-07-08] MEDS: FUROSEMIDE 40 MG/4 ML VIAL IV PUSH SCH (08:29)
[2017-07-08] MEDS: POTASSIUM CHLORIDE 20 MEQ CONTROLLED RELEASE TAB PO SCH (08:29)
[2017-07-08] MEDS: CARVEDILOL 3.125 MG TAB PO SCH (08:30)
[2017-07-08 08:47] LABS: INTERNATIONAL NORMALIZED RATIO 1.2 RATIO
[2017-07-08] MEDS ORDERED: LISINOPRIL 5 MG TAB PO SCH (09:00)
[2017-07-08] MEDS ORDERED: WARF-23 PO (13:42)
[2017-07-08] MEDS ORDERED: BUME1TAB PO (13:42)
--- NOTE | 2017-07-08 13:51 | HHI.DCPOC ---
Discharge Care Plan Diagnosis: (1) Acute on chronic systolic (congestive) heart failure (2) Supratherapeutic INR (3) Diabetes mellitus (4) PAD (peripheral artery disease) (5) Edema Goals to Promote Your Health * To prevent worsening of your condition and complications * To maintain your health at the optimal level Directions to Meet Your Goals Take your medications as prescribed Follow your dietary instruction Follow activity as directed Keep your appointments as scheduled Take your immunizations and boosters as scheduled If your symptoms worsen call your PCP, if no PCP go to Urgent Care Center or Emergency Room Smoking is Dangerous to Your Health. Avoid second hand smoke Call the 24-hour hour crisis hotline for domestic abuse at Michael Timmons MD Jul 08, 2017 13:51
--- NOTE | 2017-07-08 13:54 | HHI.DS ---
Discharge Summary Admission Date Jul 05, 2017 at 09:28 Discharge Date: Jul 08, 2017 Admitting Diagnosis CHF exacerbation/elevated troponin (1) Acute on chronic systolic (congestive) heart failure ICD Code: I50.23 - Acute on chronic systolic (congestive) heart failure Diagnosis: Principal (2) Troponin level elevated ICD Code: R77.8 - Other specified abnormalities of plasma proteins Diagnosis: Principal Status: Chronic (3) Supratherapeutic INR ICD Code: R79.1 - Abnormal coagulation profile Diagnosis: Principal Status: Resolved (4) Diabetes mellitus ICD Code: E11.9 - Diabetes mellitus Diagnosis: Principal Status: Chronic (5) PAD (peripheral artery disease) ICD Code: I73.9 - Peripheral vascular disease, unspecified Diagnosis: Secondary Status: Chronic Brief History - From Admission patient is a 62 y/o male with history of CHF, hypertension, dyslipidemia and PVD who presented to ER with shortness of breath. he says that he's had sob for the past few days. this was associated with some cough productive of clear sputum. he denies any fever or chills but reports orthopnea and PND; in fact he says that he couldn't sleep because of worsening sob. denies any chest pain- he says that he noticed that his legs are more swollen. he says that he's compliant with the medications and diet. CBC/BMP: 07/07/17 1210 07/07/17 1210 Significant Findings Laboratory Tests Test 07/05/17 15:38 07/06/17 09:01 07/07/17 12:10 07/07/17 16:10 Troponin I 0.13 NG/ML (0.02-0.05) 0.09 NG/ML (0.02-0.05) Prothrombin Time 19.1 SEC (9.8-11.6) 12.5 SEC (9.8-11.6) Blood Urea Nitrogen 19 MG/DL (7-18) Random Glucose 178 MG/DL (74-106) 146 MG/DL (74-106) Sodium Level 134 MEQ/L (136-145) Estimat Glomerular Filtration Rate 64 ML/MIN (>89) 74 ML/MIN (>89) Red Blood Count 3.73 MIL/MM3 (4.50-5.90) Hemoglobin 12.4 GM/DL (13.0-17.0) Hematocrit 37.1 % (39.0-51.0) Test 07/08/17 07:40 Prothrombin Time 12.0 SEC (9.8-11.6) PE at Discharge AAOx3 NAD S1S2 RRR, no MRG abdomen soft, nt, nd + bilateral edema still present in lower extremities Pt Condition on Discharge: Stable Discharge Disposition: Discharge Home Discharge Time: <= 30 minutes Discharge Instructions Follow up Referrals: Cardiology - 1 Week with Iraida Mccall MD PCP Follow-up - 1 Week New Medications: Bumetanide (Bumetanide) 1 Mg Tab 1 MG PO DAILY, #30 TAB 0 Refills Warfarin (Warfarin) 5 Mg Tab 5 MG PO DAILY for Blood Clot Prevention, #30 TAB 0 Refills Continued Medications: Aspirin DR (Aspirin EC) 81 Mg Tabdr 81 MG PO DAILY, TAB 0 Refills Carvedilol (Carvedilol) 3.125 Mg Tab 3.125 MG PO BID, #60 TAB 6 Refills Metformin (Metformin) 1,000 Mg Tab 1000 MG PO BIDPC for Blood Sugar Management, #180 TAB 2 Refills With meals Pravastatin (Pravastatin) 40 Mg Tab 2 TAB PO DAILY for Cholesterol Management, #60 TAB 3 Refills Discontinued Medications: Warfarin (Warfarin) 10 Mg Tab 10 MG PO DAILY for Blood Clot Prevention, #30 TAB 6 Refills Michael Timmons MD Jul 08, 2017 13:54
[2017-07-08] MEDS ORDERED: PRAVASTATIN SOD 80 MG TAB PO SCH (21:00)
== END 2017-07-08 14:35 | disposition home or self-care (01) | DRG 293 ==
LOC: NEPE 06:58 → NEDA 09:28 → N04B 12:20
PROVIDERS: ADMIT Hospitalist; ATTEND Hospitalist
DX: I11.0 Hypertensive heart disease with heart failure (principal); E11.51 Type 2 diabetes mellitus with diabetic peripheral angiopathy without gangrene; I42.9 Cardiomyopathy, unspecified; I50.23 Acute on chronic systolic (congestive) heart failure; E78.5 Hyperlipidemia, unspecified; R79.1 Abnormal coagulation profile; R60.0 Localized edema; Z79.01 Long term (current) use of anticoagulants; Z91.11 Patient's noncompliance with dietary regimen; Z79.84 Long term (current) use of oral hypoglycemic drugs; Z87.891 Personal history of nicotine dependence; Z23 Encounter for immunization
CPT/HCPCS: 71010; 80048; 80053; 82550; 82552; 82948; 83880; 84484; 85025; 85027; 85610; 85730; 90686; 93005; 93306; 93970; 96374; J1815; J1940; Q2038